=== PATIENT | male | born 1965 | race African-American/Black ===

== ENCOUNTER → 2022-08-04 10:22 | Outpatient (CLI) | payer OTHER, SELFPAY ==
--- NOTE | 2022-08-04 10:32 | CA_ITS ---
FINAL REPORT TECHNIQUE: Color Doppler, duplex Doppler and morrow scale sonography of the bilateral neck arterial vasculature was performed. Velocities were measured in the carotid arteries. Stenosis evaluation based on the validated velocity criteria. CLINICAL HISTORY: NUMBNESS LT ARM AND FACE,HTN FINDINGS: The peak systolic velocity of the right common carotid artery is 71 cm/s. The peak systolic velocity of the right internal carotid artery is 68 cm/s and end diastolic velocity 32 cm/s. The ICA/CCA ratio is 1.5. A small amount of plaque is present. The right external carotid artery is patent. The right vertebral artery is patent with antegrade flow. The peak systolic velocity of the left common carotid artery is 59 cm/s. The peak systolic velocity of the left internal carotid artery is 86 cm/s and end diastolic velocity 40 cm/s. The ICA/CCA ratio is 1.6. A small amount of plaque is present. The left external carotid artery is patent.The left vertebral artery is patent with antegrade flow. IMPRESSION: Less than 50% bilateral carotid stenoses. Bilateral patent vertebral arteries with antegrade flow. If indicated, CTA or MRA could further evaluate. Reviewed, Interpreted and Dictated by Live Rosas MD Transcribed by Amparo Andrea Authenticated and . [facility]
--- NOTE | 2022-08-04 10:59 | CT_ITS ---
FINAL REPORT TECHNIQUE: Axial CT images were performed through the head. Coronal reformatted images were submitted. This study was performed with techniques to keep radiation doses as low as reasonably achievable (ALARA). Individualized dose reduction techniques using automated exposure control or adjustment of mA and/or kV according to the patient's size were employed. CLINICAL HISTORY: DIZZINESS AND FACIAL NUMBNESS COMPARISON: None FINDINGS: Brain parenchyma is homogeneous. The ventricles are normal in size. There is no evidence of hemorrhage. There is no mass or edema identified. No localized intra-axial signal abnormalities. No abnormal extra-axial fluid seen. Paranasal sinuses are well aerated.. IMPRESSION: No acute intracranial process. Reviewed, Interpreted and Dictated by Live Rosas MD Transcribed by Do Diehl Authenticated and [facility]
== END ==
PROVIDERS: PCP Surgery; Visit Provider Surgery
DX: R42 Dizziness and giddiness (principal); R20.0 Anesthesia of skin; R20.2 Paresthesia of skin
CPT/HCPCS: 70450; 93880